=== PATIENT | female | born 1940 | race African-American/Black ===

== ENCOUNTER → 2019-09-16 | Emergency (ER) | payer OTHER ==
[~2019-09-16] VITALS: Ht 152.4 cm; Wt 56.7 kg
[2019-09-16 22:50] VITALS: BP 164/78
== END | disposition home or self-care (01) ==
LOC: EDBD 22:24 → ER 22:24
DX: T18.9XXA Foreign body of alimentary tract, part unspecified, initial encounter (principal); I10 Essential (primary) hypertension; X58.XXXA Exposure to other specified factors, initial encounter; Y93.89 Activity, other specified; Y92.89 Other specified places as the place of occurrence of the external cause; Y99.8 Other external cause status
CPT/HCPCS: 70490; 93005